=== PATIENT | female | born 1990 | race Caucasian/White ===

== ENCOUNTER 2020-08-25 17:10 | Outpatient (REF) | payer MEDICAID, SELFPAY | END 2020-08-25 17:11 | disposition home or self-care (01) | LOC: HO.LAB 17:10 | PROVIDERS: PCP Pediatrics; Visit Provider Internal Medicine | DX: Z20.828 Contact with and (suspected) exposure to other viral communicable diseases (principal) | CPT/HCPCS: 87635 ==